=== PATIENT | male | born 1965 | race Two or more races ===

== ENCOUNTER → 2021-10-01 | Outpatient (CLI) | payer OTHER ==
--- NOTE | 2021-10-01 14:13 | RAD ---
STUDY: MRI of the left knee without contrast INDICATION: Left knee pain. COMPARISON: None. TECHNIQUE: Multiplanar MR imaging of the left knee performed without the use of intravenous or intra- articular contrast. FINDINGS: Menisci: Horizontal/oblique undersurface tear of the medial meniscus best seen from the posterior bod y into the posterior horn with small parameniscal cyst formation adjacent to the posterior horn. Dege nerative signal and morphology more anteriorly along the body segment. The lateral meniscus is intact . Cruciate ligaments: Intact. Collateral ligaments: Intact. Tendons: Intact. Cartilage: Patellofemoral: Full-thickness chondral fissure along the medial aspect of the patellar median ridge, image 9 series 3. Adjacent partial thickness chondrosis. Lateral compartment: Intact. Medial compartment: High-grade/full-thickness chondral loss along the periphery of the medial tibial plateau. Bones: Subchondral edema/cystic change at the periphery of the medial tibial plateau and subjacent to the patellar chondral fissure. Several small osteophytes such as at the medial joint line. Miscellaneous: No significant joint effusion. IMPRESSION: 1. Horizontal/oblique tear of the medial meniscus best seen from the posterior body segment into the posterior horn with small parameniscal cyst formation. Intact lateral meniscus, cruciate ligaments a nd collateral ligaments 2. High-grade and in part full-thickness chondral loss at the periphery of the medial tibial plateau with subchondral edema/cystic change. Full-thickness chondral fissure at the medial aspect of the pa tellar median ridge. Electronically signed by: DONALD GUO MD (10/01/2021 2:11 PM) [id number]
== END ==
LOC: MRI 10:08
PROVIDERS: ATTEND Family Medicine
DX: S83.242A Other tear of medial meniscus, current injury, left knee, initial encounter (principal); M95.8 Other specified acquired deformities of musculoskeletal system; R60.0 Localized edema; M25.862 Other specified joint disorders, left knee; M25.762 Osteophyte, left knee; X58.XXXA Exposure to other specified factors, initial encounter; Y93.89 Activity, other specified; Y92.89 Other specified places as the place of occurrence of the external cause; Y99.8 Other external cause status
CPT/HCPCS: 73721